=== PATIENT | female | born 1935 | race Two or more races ===

== ENCOUNTER → 2019-06-14 | Emergency (ER) | payer OTHER, MEDICAID ==
[~2019-06-14] VITALS: Ht 157.5 cm; Wt 68.9 kg
[~2019-06-14] MED LIST: ASPirin 81 mg TAB PO ONE; NITROGLYCERIN 0.2MG/HR TOPICAL PATCH TD ONE; SODIUM CHLORIDE 0.9% 1,000 ML IV ONE
[2019-06-14 22:09] LABS: Basophils # (auto) 0 uL; Basophils % (auto) 0.2 % (0.0-2.0); Eosinophils # (auto) 0 uL; Eosinophils % (auto) 0.2 % (0.0-7.0); Hematocrit 35.9 % (36.0-46.0); Lymphocytes # (auto) 0.8 uL; Mean Corpuscular Hemoglobin 29.9 pg (28.0-32.0); Mean Corpuscular Hgb Conc. 33.5 g/dL (32.0-36.0); Mean Corpuscular Volume 89.3 fL (80.0-100.0); Monocytes # (auto) 1.9 uL; Monocytes % (auto) 13.3 % (0.0-12.0); Neutrophils # (auto) 11.3 uL; Neutrophils % (auto) 80.3 % (37.0-80.0); Platelet Count (auto) 263 10^3/uL (140-450); Red Blood Cells 4.02 10^6/uL (4.0-5.20); Red Cell Distribution Width 13.6 % (11.8-14.3); White Blood Cell 14.1 10^3/uL (4.4-10.8)
[2019-06-14 22:24] LABS: Partial Thromboplastin Time 21.6 sec (23.64-32.05)
[2019-06-14 22:25] LABS: Albumin 3.2 g/dL (3.4-5.0); Calcium 9.5 mg/dL (8.5-10.1); Magnesium 1.9 mg/dL (1.6-2.6); Potassium 3.5 mmol/L (3.5-5.1)
[2019-06-14 22:31] LABS: BUN/Creatinine Ratio 30.3; Bilirubin, Total 0.4 mg/dL (0.2-1.0); Total Protein 7.9 g/dL (6.4-8.2)
[2019-06-15 03:52] VITALS: BP 101/58
== END | disposition short-term general hospital (02) ==
LOC: ER 20:52
DX: R07.89 Other chest pain (principal); N28.9 Disorder of kidney and ureter, unspecified; D72.829 Elevated white blood cell count, unspecified; R79.89 Other specified abnormal findings of blood chemistry; E78.5 Hyperlipidemia, unspecified; I10 Essential (primary) hypertension; F03.90 Unspecified dementia, unspecified severity, without behavioral disturbance, psychotic disturbance, mood disturbance, and anxiety; Z88.8 Allergy status to other drugs, medicaments and biological substances
CPT/HCPCS: 36415; 71045; 72131; 73020; 80053; 83735; 83880; 84484; 85025; 85379; 85610; 85730; 94761

== ENCOUNTER 2019-06-27 08:40 | Inpatient (IN) | payer OTHER, MEDICAID ==
[~2019-06-27] VITALS: Ht 157.5 cm; Wt 68.0 kg
[2019-06-27] MEDS ORDERED: IOHEXOL 350 MG/ML 100ML IJ ONE (09:05)
[2019-06-27 09:15] LABS: Lymphocytes # (auto) 1.1 uL; Monocytes # (auto) 1.6 uL; Red Blood Cells 3.34 10^6/uL (4.0-5.20)
[2019-06-27 09:17] LABS: Basophils # (auto) 0.1 uL; Basophils % (auto) 0.7 % (0.0-2.0); Eosinophils # (auto) 0.1 uL; Eosinophils % (auto) 0.3 % (0.0-7.0); Hematocrit 29.6 % (36.0-46.0); Hemoglobin 9.8 g/dL (12.2-16.2); Lymphocytes % (auto) 5.6 % (10.0-50.0); Mean Corpuscular Hemoglobin 29.3 pg (28.0-32.0); Mean Corpuscular Volume 88.7 fL (80.0-100.0); Monocytes % (auto) 8.4 % (0.0-12.0); Neutrophils # (auto) 16.1 uL; Platelet Count (auto) 500 10^3/uL (140-450); Red Cell Distribution Width 14.4 % (11.8-14.3); White Blood Cell 18.9 10^3/uL (4.4-10.8)
[2019-06-27 09:36] LABS: Partial Thromboplastin Time 52.4 sec (23.64-32.05)
[2019-06-27 09:37] LABS: Albumin 2.6 g/dL (3.4-5.0); BUN/Creatinine Ratio 15.2; Calcium 8.7 mg/dL (8.5-10.1); Potassium 4.3 mmol/L (3.5-5.1)
[2019-06-27 09:42] LABS: Bilirubin, Total 0.3 mg/dL (0.2-1.0)
[2019-06-27 09:47] LABS: INR 5.35 (0.9-1.15)
[2019-06-27 10:00] LABS: Urine Bacteria NONE SEEN /hpf (None Seen); Urine Blood 2+ /uL (Negative); Urine Specific Gravity 1.016 (1.001-1.035); Urine WBC 73 /hpf (0 - 5)
[2019-06-27] MEDS ORDERED: PIPERACILLIN-TAZOB 3.375GM 100 ML IV ONE (11:15)
[2019-06-27] MEDS ORDERED: ONDANSETRON HCL 4 MG/2 ML VIAL IV PRN (14:15)
[2019-06-27] MEDS ORDERED: NITROGLYCERIN 0.4 MG SL TAB SL PRN (14:15)
[2019-06-27] MEDS ORDERED: ACETAMINOPHEN 325 MG TAB PO PRN (14:15)
[2019-06-27] MEDS ORDERED: MORPHINE SULFATE 4 MG/ML SYR/VIAL IV PRN (14:15)
[2019-06-27] MEDS ORDERED: HYDROcodone-ACET 5/325MG TAB PO PRN (14:15)
[2019-06-27] MEDS ORDERED: IPRATROPIUM BROM 0.5 MG/2.5ML INH SOL NEB PRN (15:30)
[2019-06-27] MEDS ORDERED: SODIUM CHLORIDE 0.9% 1,000 ML IV ONE (15:30)
[2019-06-27] MEDS ORDERED: ALBUTEROL SULF 2.5 MG/0.5ML(0.5%) NEB SOLN NEB PRN (15:30)
[2019-06-27] MEDS ORDERED: cloNIDine HCL 0.1 MG TAB PO PRN (18:15)
[2019-06-27] MEDS ORDERED: ALPRAZolam 0.25 MG TAB PO ONE (19:15)
[2019-06-27] MEDS: VENLAFAXINE HCL 37.5mg XR cap PO SCH (21:38)
[2019-06-27] MEDS: PIPERACILLIN-TAZO 4.5GM 100 ML IV SCH (21:49)
[2019-06-27] MEDS ORDERED: ATORVASTATIN 20 MG TAB PO SCH (22:00)
[2019-06-27] MEDS ORDERED: MEMANTINE HCL 5 MG TAB PO SCH (22:00)
[2019-06-27] MEDS ORDERED: QUEtiapine FUMARATE 25 MG TAB PO SCH (22:00)
--- NOTE | 2019-06-27 22:18 | NUR ---
PT SEEN IN ER SLEEPING IN BED ON 2L NC, NO RESP DISTRESS NOTED, SPO2 97%, BS CLEAR AND DIMINISHED. PRN NEB TX NOT GIVEN AT THIS TIME.
[2019-06-27 23:28] VITALS: BP 129/85
[2019-06-28] MEDS: PIPERACILLIN-TAZO 4.5GM 100 ML IV SCH ×2 (05:50→15:46)
[2019-06-28 06:04] LABS: Partial Thromboplastin Time 61.9 sec (23.64-32.05)
[2019-06-28 06:13] LABS: INR 5.11 (0.9-1.15)
--- NOTE | 2019-06-28 06:50 | NUR ---
Respiratory note: Assessed pt for prn medneb tx. HR 105, RR 22, POX 95% on 2L NC. Breath sounds diminished throughout. No s/s of respiratory distress. Medneb tx not indicated at this time. Advised pt to call for RT if requesting breathing tx. Pt's family member at bedside, aware to call as well.
[2019-06-28] MEDS ORDERED: MEMANTINE HCL 5 MG TAB PO SCH (10:00)
[2019-06-28] MEDS ORDERED: LOSARTAN POTASSIUM 50 MG TAB PO SCH (10:00)
[2019-06-28] MEDS: VENLAFAXINE HCL 37.5mg XR cap PO SCH (10:02)
[2019-06-28 12:37] LABS: INR 5.4 (0.9-1.15)
--- NOTE | 2019-06-28 14:38 | NUR ---
auth for stay: Spoke to Vidya at [facility] and she cannot give me auth at this time, she wants echo results faxed to her but since echo results are pending, I cannot fax to [facility]. She also wanting stability form. I have paged Dr. Roblero to see about transferring pt.
[2019-06-28] MEDS ORDERED: PHYTONADIONE (VIT K)10 MG/ML 1ML VIAL SUBCUT ONE (15:00)
[2019-06-28] MEDS ORDERED: DEXTROSE (50%) 50ML SYRG IV PRN (15:00)
--- NOTE | 2019-06-28 15:12 | NUR ---
Transfer echo results and transfer order faxed to [facility] at this time
--- NOTE | 2019-06-28 16:16 | NUR ---
Vidya Valdez for [facility] called and stated they will try to get pt to [facility]. Love cardona RN in ER informed and also asked to have chart copied and cds copied for transfer.
[2019-06-28] MEDS ORDERED: InsuLIN REG 1unit/0.01ml Soln (100units/ml) SC SCH (17:00)
[2019-06-28] MEDS ORDERED: ACCU-CHEK COMFORT CURVE STRIP VI SCH (17:00)
[2019-06-28 21:01] VITALS: BP 114/66
[2019-06-29] MEDS ORDERED: PANTOPRAZOLE 40 MG TAB PO SCH (10:00)
== END 2019-06-28 21:06 | disposition short-term general hospital (02) | DRG 281 ==
LOC: ER 08:43 → TELE 08:44 → SUATTDRO 14:09
PROVIDERS: ADMIT Hospitalist; ATTEND Internal Medicine
DX: I21.A1 Myocardial infarction type 2 (principal); J90 Pleural effusion, not elsewhere classified; I31.3 Pericardial effusion (noninflammatory); E44.0 Moderate protein-calorie malnutrition; J98.11 Atelectasis; E11.9 Type 2 diabetes mellitus without complications; F03.90 Unspecified dementia, unspecified severity, without behavioral disturbance, psychotic disturbance, mood disturbance, and anxiety; E78.5 Hyperlipidemia, unspecified; I10 Essential (primary) hypertension; I25.2 Old myocardial infarction; K21.9 Gastro-esophageal reflux disease without esophagitis; Z86.711 Personal history of pulmonary embolism; Z88.8 Allergy status to other drugs, medicaments and biological substances; Z68.27 Body mass index [BMI] 27.0-27.9, adult
CPT/HCPCS: 36415; 71045; 71275; 80053; 81001; 82962; 83880; 84484; 85025; 85610; 85730; 86850; 86900; 86901; 93005; 93306; 94640; 94761; 96361; 96365; G0378; J2405; J2543; J3430

== ENCOUNTER 2022-01-18 14:22 | Emergency (ER) | payer OTHER, MEDICAID ==
[~2022-01-18] VITALS: Ht 157.5 cm; Wt 63.5 kg
[2022-01-18 15:01] LABS: Basophils # (auto) 0.1 10 ^3/uL (0-0.2); Basophils % (auto) 0.7 % (0.0-2.0); Eosinophils # (auto) 0.2 10 ^3/uL (0-0.8); Eosinophils % (auto) 1.8 % (0.0-7.0); Hemoglobin 14.7 g/dL (12.2-16.2); Lymphocytes % (auto) 15.6 % (10.0-50.0); Mean Corpuscular Hgb Conc. 33.4 g/dL (32.0-36.0); Mean Corpuscular Volume 89.7 fL (80.0-100.0); Monocytes # (auto) 0.6 10 ^3/uL (0-1.3); Monocytes % (auto) 4.9 % (0.0-12.0); Neutrophils # (auto) 9.8 10 ^3/uL (1.6-8.6); Nucleated Red Blood Cells % 0.1 %; Red Blood Cells 4.91 10^6/uL (4.0-5.20); Red Cell Distribution Width 16.5 % (11.8-14.3); White Blood Cell 12.7 10^3/uL (4.4-10.8)
[2022-01-18 15:21] LABS: Albumin 3.1 g/dL (3.4-5.0); Calcium 9.4 mg/dL (8.5-10.1); Potassium 3.6 mmol/L (3.5-5.1)
[2022-01-18 15:24] LABS: Bilirubin, Total 0.4 mg/dL (0.2-1.0); Total Protein 7.9 g/dL (6.4-8.2)
[2022-01-19] MEDS ORDERED: cefTRIAXone 1GM/50ML D5W 50 ML IV ONE (01:00)
[2022-01-19] MEDS ORDERED: SODIUM CHLORIDE 0.9% 1,000 ML IV ONE (01:00)
[2022-01-19] MEDS ORDERED: AZITHROMYCIN 500MG/ 250ML 250 ML IV ONE (01:00)
[2022-01-19 02:00] LABS: Urine Bacteria FEW /hpf (None Seen); Urine Blood 1+ /uL (Negative); Urine Hyaline Cast FEW /lpf (0 - 2); Urine Specific Gravity 1.021 (1.001-1.035); Urine WBC 311 /hpf (0 - 5); Urine WBC Clumps PRESENT /hpf (None Seen)
[2022-01-19 09:40] VITALS: BP 152/94
== END 2022-01-19 09:40 | disposition short-term general hospital (02) ==
LOC: ER 14:22 → EDBD 14:22 → ER 01-19 09:40
DX: R41.82 Altered mental status, unspecified (principal); G93.41 Metabolic encephalopathy; E87.0 Hyperosmolality and hypernatremia; E11.9 Type 2 diabetes mellitus without complications; I10 Essential (primary) hypertension; E78.5 Hyperlipidemia, unspecified; I25.2 Old myocardial infarction; Z90.710 Acquired absence of both cervix and uterus; Z88.8 Allergy status to other drugs, medicaments and biological substances
CPT/HCPCS: 36415; 70450; 71045; 80053; 81001; 83605; 83880; 84484; 85025; 87426; 93005; 96361; 96365; 96366; 96367; 96375; 99285; J0456; J0696; J7030